=== PATIENT | female | born 1995 | race Two or more races ===

== ENCOUNTER 2024-07-17 12:39 | Emergency (ER) | payer MEDICAID, SELFPAY ==
[2024-07-17 13:01] VITALS: BP 101/76; PULSE 85; RESP 18; TEMP 37.2; O2SAT 96; BMI 41.4
--- NOTE | 2024-07-17 13:04 | XR_ITS ---
Examination: Foot, left, 3 views Technique: AP, oblique, lateral views foot, 3 views Date and time of exam: July 17, 2024 1317 hours INDICATIONS: Patient fell today with injury to the foot, foot pain FINDINGS: No acute fracture No dislocation No foreign body IMPRESSION: No acute fracture
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
== END 2024-07-17 17:45 | disposition home or self-care (01) ==
PROVIDERS: Emergency Provider Emergency Medicine; PCP Family Medicine
DX: S93.602A Unspecified sprain of left foot, initial encounter (principal); X58.XXXA Exposure to other specified factors, initial encounter; Y92.219 Unspecified school as the place of occurrence of the external cause
CPT/HCPCS: 73630; 99283

== ENCOUNTER 2024-10-02 18:24 | Emergency (ER) | payer MEDICAID, SELFPAY ==
[2024-10-02 19:26] VITALS: BP 121/79; PULSE 100; RESP 18; TEMP 37.7; O2SAT 95; BMI 42.5
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
== END 2024-10-02 19:52 | disposition home or self-care (01) ==
PROVIDERS: Emergency Provider Emergency Medicine
DX: S40.022A Contusion of left upper arm, initial encounter (principal); S09.90XA Unspecified injury of head, initial encounter; M54.2 Cervicalgia; Y09 Assault by unspecified means
CPT/HCPCS: 99281